=== PATIENT | female | born 1970 | race Hispanic/Latino ===

== ENCOUNTER 2019-11-07 14:30 | Inpatient (IN) | payer OTHER ==
[~2019-11-07] VITALS: Ht 162.6 cm; Wt 68.0 kg
[2019-11-07] MEDS ORDERED: ACETAMINOPHEN EXTRA STRENGTH 500 MG TABLET ONE (14:54)
[2019-11-07] MEDS ORDERED: SODIUM CHLORIDE 0.9% 100 ML IV ONE (15:10)
[2019-11-07] MEDS ORDERED: CEFTRIAXONE SODIUM 1 GM ONE (15:10)
[2019-11-07] MEDS ORDERED: AZITHROMYCIN 250 MG TABLET PO ONE (15:30)
[2019-11-07] MEDS ORDERED: CEFTRIAXONE SODIUM 1 GM IVP SCH (17:30)
[2019-11-07] MEDS ORDERED: AZITHROMYCIN 500MG+NS 250ML 250 ML IV SCH (17:30)
[2019-11-07] MEDS ORDERED: ACETAMINOPHEN 325 MG TAB PO PRN ×2 (17:30)
[2019-11-07] MEDS ORDERED: ONDANSETRON HCL 4 MG/2 ML VIAL IVP PRN (17:30)
[2019-11-07] MEDS ORDERED: METHYLPREDNISOLONE SOD SUCC 40MG/ML 1ML ONE (21:14)
[2019-11-07] MEDS ORDERED: FAMOTIDINE 20MG TAB 20 MG TAB ONE (21:14)
[2019-11-08] MEDS ORDERED: FAMOTIDINE/PF 20 MG/2 ML VIAL IV ONE (08:08)
[2019-11-08] MEDS ORDERED: METHYLPREDNISOLONE SOD SUCC 40MG/ML 1ML ONE ×3 (08:08→20:32)
[2019-11-08] MEDS ORDERED: ENOXAPARIN SODIUM 30 MG/0.3 ML SQ ONE ×2 (08:08→12:01)
[2019-11-08] MEDS ORDERED: AZITHROMYCIN 500MG+NS 250ML 250 ML IV ONE ×2 (12:01→14:38)
[2019-11-08] MEDS ORDERED: CEFTRIAXONE SODIUM 1 GM ONE ×2 (12:01→14:38)
--- NOTE | 2019-11-08 15:17 | NUR ---
INITIAL SW spoke with patient. She states she lives with her spouse, Delvin Swanson. [phone]. No home services. DME: [facility]. Patient is able to complete ADL's independently and drives. PCP is MD at [facility]. Pharmacy is [facility]. DCP is home. Patient has no insurance or benefits. Patient was educated on [facility] $4 medication program and [facility] $5 medication program. Patient is being assisted by [employer] for financial matters. Addendum: 11/08/19 at 1520 by KIET LERMA SS Amended: Links added.
[2019-11-09] MEDS ORDERED: ENOXAPARIN SODIUM 30 MG/0.3 ML SQ ONE (08:49)
[2019-11-09] MEDS ORDERED: METHYLPREDNISOLONE SOD SUCC 40MG/ML 1ML ONE ×2 (08:49→11:18)
[2019-11-09] MEDS ORDERED: FAMOTIDINE/PF 20 MG/2 ML VIAL IV ONE ×2 (08:50→11:19)
[2019-11-09] MEDS ORDERED: CEFTRIAXONE SODIUM 1 GM ONE (11:19)
[2019-11-09] MEDS ORDERED: AZITHROMYCIN 500MG+NS 250ML 250 ML IV ONE (11:20)
[2019-11-10] VITALS (9 sets, daily range): BP systolic 108–130; BP diastolic 63–74; PULSE 49–87; RESP 10–62; TEMP 96.7–98.6
[2019-11-10] MEDS: FAMOTIDINE 20MG TAB 20 MG TAB PO SCH ×2 (09:00→19:46)
[2019-11-10] MEDS: ENOXAPARIN SODIUM 30 MG/0.3 ML SQ SCH (09:00)
[2019-11-10] MEDS: METHYLPREDNISOLONE SOD SUCC 40MG/ML 1ML IVP SCH ×2 (09:00→19:46)
[2019-11-10] MEDS ORDERED: FAMOTIDINE/PF 20 MG/2 ML VIAL IV ONE (09:02)
[2019-11-10] MEDS ORDERED: METHYLPREDNISOLONE SOD SUCC 40MG/ML 1ML ONE (09:02)
--- NOTE | 2019-11-10 14:09 | NUR ---
NOTIFIED EARLIER TODAY THAT [facility] HAD SEEN ORDER FOR HOME O2. PATIENT STILL ON 3L 98%, PT IS NON FUNDED. WILL ATTMEPT TO WEAN O2 PRIOR TO HOME O2 EVAL. Addendum: 11/10/19 at 1412 by JASMINA GARCIA RN CM Amended: Links added.
[2019-11-10] MEDS ORDERED: CEFTRIAXONE SODIUM 1 GM ONE (14:10)
[2019-11-10] MEDS ORDERED: AZITHROMYCIN 500MG+NS 250ML 250 ML IV ONE (14:10)
[2019-11-10] MEDS ORDERED: SODIUM CHLORIDE 0.9% 100 ML IV ONE (14:11)
--- NOTE | 2019-11-10 14:13 | NUR ---
DISPO EXPECTED TO BE TO HOME- WATING OT SEE IF OXYGEN CAN BE WEANED, IF NOT WILL ATTEMPT TO GET PRIVATE PAY SUPPLIER. Addendum: 11/10/19 at 1414 by JASMINA GARCIA RN CM Amended: Links added.
[2019-11-11 00:16] VITALS: BP_SYST 116; BP_SYST 161; BP_DIAS 72; BP_DIAS 96; PULSE 95; RESP 26; TEMP 97
[2019-11-11 04:00] VITALS: BP 105/57; PULSE 60; RESP 23; TEMP 98
[2019-11-11 08:36] VITALS: BP 107/66; PULSE 65; RESP 18; TEMP 98.4
[2019-11-11] MEDS: FAMOTIDINE 20MG TAB 20 MG TAB PO SCH (09:00)
[2019-11-11] MEDS: METHYLPREDNISOLONE SOD SUCC 40MG/ML 1ML IVP SCH (09:19)
[2019-11-11] MEDS: ENOXAPARIN SODIUM 30 MG/0.3 ML SQ SCH (09:20)
--- NOTE | 2019-11-11 10:00 | NUR ---
PT HAS BEEN OUT OF BED WITHOUT ASSISTANCE. NO SHORTNESS OF BREATH. SPO2 96% ON ROOM AIR. NO RESPIRATORY DISTRESS.
[2019-11-11 12:55] VITALS: BP 118/62; PULSE 62; RESP 18; TEMP 97.9
--- NOTE | 2019-11-11 15:22 | NUR ---
PT DISCHARGED PER DR PINA AND DR LAUREANO. FOLLOW UP APPT MADE AND PT VERBALIZES UNDERSTANDING OF DISCHARGE INSTRUCTIONS.
== END 2019-11-11 16:24 | disposition home or self-care (01) | DRG 177 ==
LOC: EDH 14:30 → EDHIP 14:31 → 2CH 11-10 17:08
PROVIDERS: ADMIT Hospitalist; ATTEND Hospitalist
DX: U07.1 COVID-19 (principal); J96.01 Acute respiratory failure with hypoxia; J12.89 Other viral pneumonia; Z86.19 Personal history of other infectious and parasitic diseases

== ENCOUNTER 2023-09-01 14:35 | Emergency (ER) | payer OTHER ==
[~2023-09-01] VITALS: Ht 162.6 cm; Wt 66.7 kg
[~2023-09-01 14:35] MED LIST: DEXA6TAB PO
[2023-09-01] MEDS: ONDANSETRON 4MG INJ IVP ONE (18:21)
[2023-09-01] MEDS: FAMOTIDINE 20MG VIAL IV ONE (18:21)
[2023-09-01] MEDS: LACTATED RINGERS 1000ML 1,641 ML IV ONE (18:21)
[2023-09-01] MEDS: MORPHINE 4 MG SYG IVP ONE (18:22)
[2023-09-01 18:33] LABS: CREATININE 0.7 mg/dL (0.5-1.0); POTASSIUM 3.6 mmol/L (3.5-5.1)
[2023-09-01 18:36] LABS: BASOPHILS # (AUTO) 0.02 K/uL (0.00-0.20); BASOPHILS % (AUTO) 0.2 % (0.0-5.0); EOSINOPHILS # (AUTO) 0.04 K/uL (0.00-0.70); EOSINOPHILS % (AUTO) 0.5 % (0.0-8.0); HEMATOCRIT 43.1 % (36-48); IMMATURE GRANULOCYTE ABSOLUTE 0.01 K/uL (0-1); LYMPHOCYTES # (AUTO) 1.2 K/uL (1.0-4.8); LYMPHOCYTES % (AUTO) 13.3 % (21.0-51.0); MEAN CORPUSCULAR HEMOGLOBIN 32.6 pg (27.0-33.0); MEAN CORPUSCULAR VOLUME 90.5 fL (79-99); MONOCYTES # (AUTO) 0.5 K/uL (0.1-1.0); MONOCYTES % (AUTO) 6.1 % (3.0-13.0); NEUTROPHILS # (AUTO) 7.1 K/uL (1.8-7.7); NEUTROPHILS % (AUTO) 79.8 % (40.0-77.0); PLATELET COUNT (AUTO) 168 K/uL (130-400); RED BLOOD CELL COUNT(AUTO) 4.76 MIL/uL (4.00-5.50); RED CELL DISTRIBUTION WIDTH 12.4 % (11.0-15.5); WHITE BLOOD COUNT (AUTO) 8.8 K/uL (4.8-10.8)
[2023-09-01 18:38] LABS: ALBUMIN 4.3 g/dL (3.5-5.0); BILIRUBIN,TOTAL 1.8 mg/dL (0.2-1.0); MAGNESIUM 2.2 mg/dL (1.80-2.40); TOTAL PROTEIN, SERUM 8.8 g/dL (6.0-8.3)
[2023-09-01 18:48] LABS: MAGNESIUM 2.2 mg/dL (1.80-2.40); THYROID STIMULATING HORMONE 0.92 uIU/mL (0.36-3.74)
[2023-09-01] MEDS ORDERED: CYCL10TA16 PO (19:05)
[2023-09-01] MEDS ORDERED: METR-172 PO (19:05)
[2023-09-01 19:24] VITALS: BP 119/76; PULSE 90; RESP 18; O2SAT 100
== END 2023-09-01 19:48 | disposition home or self-care (01) ==
LOC: EDH 14:35
DX: K52.9 Noninfective gastroenteritis and colitis, unspecified (principal); Z79.899 Other long term (current) drug therapy
CPT/HCPCS: 99285; 74176; 96374; 96375; 71045; 96361; 84443; 82550; 83735 ×2; 84484; 80053; 83690; 85025; 83605; 36415; 93005 ×2; J7120; J3490; J2405; J2270

== ENCOUNTER 2023-12-07 18:04 | Emergency (ER) | payer OTHER ==
[~2023-12-07] VITALS: Ht 162.6 cm; Wt 65.3 kg
[~2023-12-07 18:04] MED LIST changes: +CYCL10TA16 PO; +METR-172 PO
[2023-12-07] MEDS: ACETAMINOPHEN 325 MG TAB PO ONE (18:53)
[2023-12-07] MEDS: TETANUS/DIPHTHERIA TOXOID [ADULT] 0.5 ML VIAL IM ONE (18:55)
[2023-12-07 18:56] LABS: BASOPHILS # (AUTO) 0.04 K/uL (0.00-0.20); BASOPHILS % (AUTO) 0.5 % (0.0-5.0); EOSINOPHILS # (AUTO) 0.04 K/uL (0.00-0.70); EOSINOPHILS % (AUTO) 0.5 % (0.0-8.0); HEMATOCRIT 40.7 % (36-48); IMMATURE GRANULOCYTE ABSOLUTE 0.02 K/uL (0-1); LYMPHOCYTES # (AUTO) 1.9 K/uL (1.0-4.8); LYMPHOCYTES % (AUTO) 23.9 % (21.0-51.0); MEAN CORPUSCULAR HEMOGLOBIN 32.4 pg (27.0-33.0); MEAN CORPUSCULAR HGB CONC 35.6 g/dL (32.0-36.0); MEAN CORPUSCULAR VOLUME 90.8 fL (79-99); MONOCYTES # (AUTO) 0.6 K/uL (0.1-1.0); MONOCYTES % (AUTO) 7.3 % (3.0-13.0); NEUTROPHILS # (AUTO) 5.3 K/uL (1.8-7.7); NEUTROPHILS % (AUTO) 67.5 % (40.0-77.0); PLATELET COUNT (AUTO) 188 K/uL (130-400); RED BLOOD CELL COUNT(AUTO) 4.48 MIL/uL (4.00-5.50); RED CELL DISTRIBUTION WIDTH 12.5 % (11.0-15.5); WHITE BLOOD COUNT (AUTO) 7.8 K/uL (4.8-10.8)
[2023-12-07] MEDS ORDERED: DIPH,PERTUSS(ACELL),TET VAC/PF 0.5 ML VIAL IM ONE (19:00)
[2023-12-07 19:07] LABS: CREATININE 1.2 mg/dL (0.5-1.0); POTASSIUM 3.7 mmol/L (3.5-5.1)
[2023-12-07 19:12] LABS: ALBUMIN 3.8 g/dL (3.5-5.0); TOTAL PROTEIN, SERUM 7.6 g/dL (6.0-8.3)
[2023-12-07 19:30] LABS: INR 0.96 (0.85-1.15); PROTHROMBIN TIME 10.4 SEC (9.6-11.6)
[2023-12-07 19:31] LABS: PARTIAL THROMBOPLASTIN TIME 24.4 SEC (26.3-35.5)
[2023-12-07 20:07] VITALS: BP 124/80; PULSE 84; RESP 18; O2SAT 100
== END 2023-12-07 20:22 | disposition home or self-care (01) ==
LOC: EDH 18:04
DX: S16.1XXA Strain of muscle, fascia and tendon at neck level, initial encounter (principal); S00.83XA Contusion of other part of head, initial encounter; S00.12XA Contusion of left eyelid and periocular area, initial encounter; S00.33XA Contusion of nose, initial encounter; Z79.899 Other long term (current) drug therapy; W01.0XXA Fall on same level from slipping, tripping and stumbling without subsequent striking against object, initial encounter; Y93.89 Activity, other specified; Y92.89 Other specified places as the place of occurrence of the external cause; Y99.8 Other external cause status
CPT/HCPCS: 36415; 70450; 70486; 72125; 80053; 85025; 85610; 85730; 90471; 90715; 93005